=== PATIENT | female | born 1980 | race Caucasian/White ===

== ENCOUNTER 2019-07-14 19:02 | Emergency (ER) | payer BC ==
[~2019-07-14] VITALS: Ht 172.7 cm; Wt 61.2 kg
--- NOTE | 2019-07-14 19:15 | NUR ---
ED Nurse Note: Patient walked into ED c/o new onset weakness that started aroudn 1630 earlier accompanied by a mild headache, rates her pain a 7/10 pain. denies any vision changes, just reports dizziness. patient is alert and oriented x4, no forearm drifted noted. Eyes WANG. patient placed on a youth nutritional monitor, bed at lowest position, iv started on patients right forearm 20 gauge. will wait for further orders
[2019-07-14 19:18] VITALS: BP 145/94
--- NOTE | 2019-07-14 19:29 | Emergency Room Report ---
History of Present Illness General Chief Complaint: Headache Source: Patient Present Illness HPI Disclaimer: Please note that this report is being documented using [employer] technology. This can lead to erroneous entry secondary to incorrect interpretation by the dictating instrument. HPI: 38-year-old female with a history of RA and carpal tunnel syndrome presents for evaluation of paresthesias and headaches. Symptoms have been intermittent and present for several weeks. She notes approximately 1 week of a generalized headache and difficulty concentrating. She feels like her head is "fuzzy" denies any visual changes, neck pain, fever, changes in consciousness , ataxia, weakness. She reports paresthesias around her mouth and over the extremities both upper and lower. They come and go without obvious trigger. She notes photophobia but denies photophobia. Has a history of migraines but states this headache is different. It is generalized and currently dull. Reports some nausea but denies vomiting. He is currently reporting bilateral paresthesias around the lower jaw. No new medications. Denies drug or alcohol use. PMH: RA, carpal tunnel PSH: Surgical pinning of tibia Allergies: Denies Social Hx: Denies tobacco, alcohol or drug use Allergies: Coded Allergies: No Known Allergies (Unverified , 07/14/19) Patient History Last Menstrual Period: 06/2019 Now: No Nursing Documentation-PMH Past Medical History: No History, Except For Review of Systems All Other Systems: negative except mentioned in HPI Physical Exam Vital Signs Date Time Temp Pulse Resp B/P (MAP) Pulse Ox O2 Delivery O2 Flow Rate FiO2 07/14/19 19:10 98.4 63 20 145/94 (111) 100 Room Air General: Awake and alert, no acute distress HEENT: NC/AT. EOMI. PERRLA. Visual tompkins are full. No nystagmus. Facial expressions are symmetrical. No facial droop. Cardiovascular: RRR. S1 and S2 normal. No murmur appreciated Resp: Normal work of breathing. No cough, wheezing or crackles appreciated Abdomen: Abdomen is soft, nondistended. Nontender Skin: Intact. No abrasions, laceration or rash over the exposed skin MSK: Normal tone and bulk. Moving all extremities. No obvious deformity. There is no drift in the upper or lower extremities bilaterally. Neuro: Awake and alert. Mentating appropriately. Facial expression symmetrical. No dysarthria, no ataxia on ergkqh-[id number]-[id number] or hqng-so-pwjg testing. Sensation to light touch is intact over the upper and lower extremities. The patient has intact speech with good repetition, comprehension. Fund of knowledge is full. No aphasia, no neglect. NIH: 0 Medical Decision Making Diagnostic Impression: Primary Impression: Abnormal TSH Additional Impressions: Paresthesias Headache ER Course 38-year female presents for evaluation of multiple complaints including headache , paresthesias, photosensitivity intermittently occurring over the past several weeks to months. Differential is broad and includes but is not limited to generalized headache, migraine, dehydration, viral syndrome, peripheral neuropathy, vitamin deficiency, endocrine issue, infection, electrolyte abnormality, space-occupying lesion, cranial malformation, focal seizure activity, toxicology. We will start broad work-up including CT scan of the head , labs, tox screen. She arrives with stable vital signs and is no acute distress. If work-up is unremarkable may follow-up as an outpatient. She already has an appointment with a neurologist in 2 weeks. Laboratory Tests Test 07/14/19 19:25 White Blood Count 6.0 K/UL (4.8-10.8) Red Blood Count 4.07 M/UL (4.20-5.40) L Hemoglobin 10.6 G/DL (12.0-16.0) L Hematocrit 33.3 % (37.0-47.0) L Mean Corpuscular Volume 82 FL (80-99) Mean Corpuscular Hemoglobin 26.1 PG (27.0-31.0) L Mean Corpuscular Hemoglobin Concent 31.9 G/DL (32.0-36.0) L Red Cell Distribution Width 14.3 % (11.6-14.8) Platelet Count 235 K/UL (150-450) Mean Platelet Volume 8.6 FL (6.5-10.1) Neutrophils (%) (Auto) 46.0 % (45.0-75.0) Lymphocytes (%) (Auto) 34.6 % (20.0-45.0) Monocytes (%) (Auto) 12.9 % (1.0-10.0) H Eosinophils (%) (Auto) 3.5 % (0.0-3.0) H Basophils (%) (Auto) 2.9 % (0.0-2.0) H Urine Color Pale yellow Urine Appearance Clear Urine pH 6.5 (4.5-8.0) Urine Specific [place] 1.005 (1.005-1.035) Urine Protein Negative (NEGATIVE) Urine Glucose (UA) Negative (NEGATIVE) Urine Ketones Negative (NEGATIVE) Urine Blood Negative (NEGATIVE) Urine Nitrite Negative (NEGATIVE) Urine Bilirubin Negative (NEGATIVE) Urine Urobilinogen Normal MG/DL (0.0-1.0) Urine Leukocyte Esterase Negative (NEGATIVE) Urine HCG, Qualitative Negative (NEGATIVE) Sodium Level 140 MMOL/L (136-145) Potassium Level 4.5 MMOL/L (3.5-5.1) Chloride Level 103 MMOL/L (98-107) Carbon Dioxide Level 29 MMOL/L (21-32) Anion Gap 8 mmol/L (5-15) Blood Urea Nitrogen 11 mg/dL (7-18) Creatinine 1.2 MG/DL (0.55-1.30) Estimate Glomerular Filtration Rate 50.5 mL/min (>60) Glucose Level 100 MG/DL (74-106) Calcium Level 8.9 MG/DL (8.5-10.1) Magnesium Level 2.2 MG/DL (1.8-2.4) Total Bilirubin 0.3 MG/DL (0.2-1.0) Aspartate Amino Transferase (AST) 18 U/L (15-37) Alanine Aminotransferase (ALT) 19 U/L (12-78) Alkaline Phosphatase 70 U/L (46-116) Total Protein 7.7 G/DL (6.4-8.2) Albumin 4.0 G/DL (3.4-5.0) Globulin 3.7 g/dL Albumin/Globulin Ratio 1.1 (1.0-2.7) Thyroid Stimulating Hormone (TSH) 5.090 uiU/mL (0.358-3.740) Salicylates Level 1.1 ug/mL (2.8-20) L Urine Opiates Screen Negative (NEGATIVE) Acetaminophen Level < 2 MCG/ML (10-30) L Urine Barbiturates Screen Negative (NEGATIVE) Phencyclidine (PCP) Screen Negative (NEGATIVE) Urine Amphetamines Screen Negative (NEGATIVE) Urine Benzodiazepines Screen Negative (NEGATIVE) Urine Cocaine Screen Negative (NEGATIVE) Urine Marijuana (THC) Screen Negative (NEGATIVE) Serum Alcohol < 3 mg/dL CT/MRI/US Diagnostic Results CT/MRI/US Diagnostic Results : Impression Preliminary Findings Only See Final Report For Complete Findings CT HEAD Without Contrast: No acute intracranial hemorrhage, extra-axial fluid collection, edema, mass effect, or ischemic infarct. No fracture. Trace mucosal thickening in the left maxillary sinus. Radiologist: Bill Holden MD Study ready at 20:11 and initial results transmitted at 20:18 Reevaluation Time: 20:48 Last Vital Signs Date Time Temp Pulse Resp B/P (MAP) Pulse Ox O2 Delivery O2 Flow Rate FiO2 07/14/19 19:10 98.4 63 20 145/94 (111) 100 Room Air Reevaluation Impression Labs have returned largely within normal limits aside from an elevated TSH. CT scan does not show any space-occupying lesion or other abnormalities. The patient is resting comfortably on my reevaluation. It is possible that this is an endocrine issue as the patient states there is a family history of Melvin' s disease. She has been screened many years ago but now has an appoint with a neurologist in 2 weeks and will also follow-up with her PMD to arrange an appointment with endocrinology. I advised her that she requires repeat and possibly more extensive testing including vitamin studies for B12, thiamine, folate to rule out other cause of peripheral neuropathy. Provided copies of her labs and imaging reports. Patient is feeling well and would like to be discharged to follow-up as an outpatient. We discussed reasons to return to the emergency department. She understands and agrees with this treatment plan. Disposition: HOME, SELF-CARE Condition: Stable Jac Perkins MD Jul 14, 2019 19:29
[2019-07-14 19:58] LABS: BASOPHILS % (AUTO) 2.9 % (0.0-2.0); EOSINOPHILS % (AUTO) 3.5 % (0.0-3.0); HEMATOCRIT 33.3 % (37.0-47.0); HEMOGLOBIN 10.6 G/DL (12.0-16.0); LYMPHOCYTES % (AUTO) 34.6 % (20.0-45.0); MEAN CORPUSCULAR VOLUME 82 FL (80-99); MONOCYTES % (AUTO) 12.9 % (1.0-10.0); PLATELET COUNT 235 K/UL (150-450); RED BLOOD COUNT 4.07 M/UL (4.20-5.40); RED CELL DISTRIBUTION WIDTH 14.3 % (11.6-14.8)
[2019-07-14 20:10] LABS: APPEARANCE,URINE CLEAR; BILIRUBIN, URINE NEGATIVE (NEGATIVE); COLOR,URINE PALE YELLOW; GLUCOSE, URINE (UA) NEGATIVE (NEGATIVE); KETONES,URINE NEGATIVE (NEGATIVE); LEUKOCYTE ESTERASE ,URINE NEGATIVE (NEGATIVE); NITRITE,URINE NEGATIVE (NEGATIVE); PH,URINE 6.5 (4.5-8.0); PROTEIN,URINE NEGATIVE (NEGATIVE); UROBILINOGEN,URINE NORMAL MG/DL (0.0-1.0)
--- NOTE | 2019-07-14 20:19 | Diagnostic Imaging Report ---
Indications: Headache Technique: Spiral acquisitions obtained through the brain. Angled axial and coronal 5 x 5 mm slices were reconstructed. Total dose length product 1334 mGycm. CTDI vol(s) 60 mGy. Dose reduction achieved using automated exposure control Comparison: None. Findings: Intact calvarium. There is minimal bilateral maxillary sinus disease. Normal size ventricles and extra axial CSF spaces. Normal oconnor-white differentiation. Visualized orbits are unremarkable. No acute intracranial hemorrhage or edema, mass effect, nor midline shift. Impression: Negative for acute intracranial bleed or mass effect Minimal sinus disease This agrees with the preliminary interpretation provided overnight by [facility]. The CT scanner at [facility] is accredited by the [employer] and the scans are performed using protocols designed to limit radiation exposure to as low as reasonably achievable to attain images of sufficient resolution adequate for diagnostic evaluation.
[2019-07-14 20:26] LABS: ANION GAP 8 mmol/L (5-15); BLOOD UREA NITROGEN 11 mg/dL (7-18); CALCIUM 8.9 MG/DL (8.5-10.1); CARBON DIOXIDE 29 MMOL/L (21-32); CHLORIDE 103 MMOL/L (98-107); CREATININE 1.2 MG/DL (0.55-1.30); POTASSIUM 4.5 MMOL/L (3.5-5.1); SODIUM 140 MMOL/L (136-145)
[2019-07-14 20:37] LABS: ALANINE AMINOTRANSFERASE 19 U/L (12-78); ALBUMIN/GLOBULIN RATIO 1.1 (1.0-2.7); ALKALINE PHOSPHATASE 70 U/L (46-116); ASPARTATE AMINO TRANSFERASE 18 U/L (15-37); BILIRUBIN,TOTAL 0.3 MG/DL (0.2-1.0)
[2019-07-14 21:00] VITALS: BP 128/76
--- NOTE | 2019-07-14 21:00 | NUR ---
ER DISCHARGE NOTE: Patient is cleared to be discharged per ERMD, pt is aox4, on room air, with stable vital signs. pt was given dc and prescription instructions, pt was able to verbalize understanding, pt id band and iv site removed without complications. pt is able to ambulate with steady gait. pt took all belongings.
== END 2019-07-14 21:00 | disposition home or self-care (01) ==
LOC: EMR 20:06
DX: R20.2 Paresthesia of skin (principal); R51 Headache; R79.89 Other specified abnormal findings of blood chemistry
CPT/HCPCS: 36415; 70450; 80053; 80307; 81003; 81025; 83735; 84443; 85025; 99284; G0480

== ENCOUNTER 2019-07-20 20:36 | Emergency (ER) | payer BC ==
[~2019-07-20] VITALS: Ht 170.2 cm; Wt 65.8 kg
[2019-07-20 20:45] VITALS: BP 123/67
[2019-07-20] MEDS: Ketorolac 30mg Inj IV ONE ×2 (21:09→21:15)
[2019-07-20] MEDS ORDERED: Metoclopramide 10mg/2ml Inj IVP ONE (21:15)
[2019-07-20] MEDS ORDERED: DiphenhydrAMINE 50mg/ml Inj IVP ONE (21:15)
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
[2019-07-20] MEDS ORDERED: FIORICET1 EA ORAL (21:34)
[2019-07-20 22:00] VITALS: BP 115/65
== END 2019-07-20 22:00 | disposition home or self-care (01) ==
LOC: EMR 20:55
DX: R51 Headache (principal); R42 Dizziness and giddiness
CPT/HCPCS: 96374; 96375; 99284; J1200; J1885; J2765

== ENCOUNTER 2020-02-20 15:07 | Emergency (ER) | payer SELFPAY ==
[~2020-02-20] VITALS: Ht 170.2 cm; Wt 65.8 kg
[~2020-02-20 15:07] MED LIST: FIORICET1 EA ORAL
[2020-02-20] MEDS ORDERED: Omnipaque-300 100ml vial INJ PRN (15:15)
[2020-02-20 15:32] VITALS: BP 126/82
[2020-02-20 15:44] LABS: BASOPHILS % (AUTO) 3.2 % (0.0-2.0); EOSINOPHILS % (AUTO) 3.5 % (0.0-3.0); HEMATOCRIT 39.5 % (37.0-47.0); HEMOGLOBIN 12.8 G/DL (12.0-16.0); LYMPHOCYTES % (AUTO) 26.1 % (20.0-45.0); MEAN CORPUSCULAR VOLUME 94 FL (80-99); MONOCYTES % (AUTO) 11.1 % (1.0-10.0); NEUTROPHILS % (AUTO) 56.1 % (45.0-75.0); PLATELET COUNT 233 K/UL (150-450); RED BLOOD COUNT 4.19 M/UL (4.20-5.40); RED CELL DISTRIBUTION WIDTH 12.1 % (11.6-14.8); WHITE BLOOD COUNT 8.9 K/UL (4.8-10.8)
[2020-02-20 15:46] LABS: APPEARANCE,URINE CLEAR; BILIRUBIN, URINE NEGATIVE (NEGATIVE); COLOR,URINE PALE YELLOW; GLUCOSE, URINE (UA) NEGATIVE (NEGATIVE); KETONES,URINE NEGATIVE (NEGATIVE); LEUKOCYTE ESTERASE ,URINE NEGATIVE (NEGATIVE); NITRITE,URINE NEGATIVE (NEGATIVE); PH,URINE 5 (4.5-8.0); PROTEIN,URINE NEGATIVE (NEGATIVE); UROBILINOGEN,URINE NORMAL MG/DL (0.0-1.0)
[2020-02-20 15:56] LABS: ANION GAP 12 mmol/L (5-15); BLOOD UREA NITROGEN 10 mg/dL (7-18); CALCIUM 9.5 MG/DL (8.5-10.1); CARBON DIOXIDE 22 MMOL/L (21-32); CHLORIDE 103 MMOL/L (98-107); POTASSIUM 3.8 MMOL/L (3.5-5.1); SODIUM 137 MMOL/L (136-145)
[2020-02-20 16:02] LABS: ALANINE AMINOTRANSFERASE 14 U/L (12-78); ALBUMIN 4.2 G/DL (3.4-5.0); ALBUMIN/GLOBULIN RATIO 0.9 (1.0-2.7); ALKALINE PHOSPHATASE 72 U/L (46-116); ASPARTATE AMINO TRANSFERASE 18 U/L (15-37); BILIRUBIN,TOTAL 0.3 MG/DL (0.2-1.0)
--- NOTE | 2020-02-20 16:34 | Diagnostic Imaging Report ---
EXAM: CT CT Abdomen Pelvis WO Contrast INDICATION: Abdominal pain. COMPARISON: None TECHNIQUE: Axial images were obtained through the abdomen pelvis without intravenous contrast. Sagittal and coronal reformats are generated. All CT scans at this facility are performed using dose modulation techniques as appropriate to a performed exam including the following: automated exposure control with adjustment of the mA and/or kV according to patient size. RADIATION DOSE: CTDIvol: 4.9 mGy DLP: 250 3. mGy-cm Dose information generated by the CT scanner is available in PACS. FINDINGS: The lung bases are clear. The liver and spleen are homogeneous. Gallbladder is without sludge or stone and there is no wall thickening. The pancreas is unremarkable. Adrenals are normal in morphology. The kidneys are normal in size, shape and axis. Small bowel loops are nondistended. Mild increased stool lucencies noted in the colon. The appendix is normal. There is no free fluid or free air. No pathologic adenopathy demonstrated. Urinary bladder appears unremarkable. Uterus is midline. There appears to be a left adnexal cyst. IMPRESSION: NO SIGN OF ACUTE DISEASE IN THE ABDOMEN AND PELVIS. NORMAL APPENDIX. MILDLY INCREASED STOOL LUCENCIES IN THE COLON WHICH MAY BE RELATED TO MILD CONSTIPATION. LEFT ADNEXAL CYST LIKELY PHYSIOLOGIC.
--- NOTE | 2020-02-20 16:40 | Emergency Room Report ---
History of Present Illness General Chief Complaint: Abdominal Pain Source: Patient Present Illness HPI 39-year-old female with no significant past medical history here complaining of sudden onset of right lower quadrant abdominal pain and few bouts of nonbloody emesis last night. Denies any nausea vomiting at this time. Denies any diarrhea. Reports that she often deals with constipation and she has been constipated more so in the past few days. Complains of fever and chills last night however denies any fever and chills at this time. Does not want to be given medication at this time. Reports that she has a history of ruptured ovarian cyst in the same side of pain. Denies any vaginal bleeding, clotting, urinary symptoms. Has not taken medication for symptom relief. Denies tobacco smoke, drug use, alcohol intake. Denies Allergies: Coded Allergies: No Known Allergies (Unverified , 07/14/19) COVID-19 Screening Contact w/high risk pt: No Recent Travel to affected area: No Experienced COVID-19 symptoms?: No COVID-19 Testing performed METAL BALER: No Patient History Past Medical History: see triage record Past Surgical History: none Pertinent Family History: none Last Menstrual Period: 02/01/20 Now: No : 0 Para: 0 Immunizations: UTD Reviewed Nursing Documentation: PMH: Agreed; PSxH: Agreed Nursing Documentation-PMH Past Medical History: No History, Except For Review of Systems All Other Systems: negative except mentioned in HPI Physical Exam Vital Signs Date Time Temp Pulse Resp B/P (MAP) Pulse Ox O2 Delivery O2 Flow Rate FiO2 02/20/20 15:11 98.8 65 18 126/82 (97) 98 Room Air Sp02 EP Interpretation: reviewed, normal General Appearance: no apparent distress, alert, GCS 15, non-toxic Head: normocephalic, atraumatic Eyes: bilateral eye normal inspection, bilateral eye PERRL ENT: hearing grossly normal, normal pharynx, no angioedema, normal voice Neck: full range of motion, supple/symm/no masses Respiratory: chest non-tender, lungs clear, normal breath sounds, no rhonchi, no respiratory distress, no wheezing, speaking full sentences Cardiovascular #1: regular rate, rhythm, no edema Gastrointestinal: non tender, soft, no mass, no bruit, no hernia, no pulsatile mass, guarding - Right lower quadrant Rectal: deferred Genitourinary: no CVA tenderness Musculoskeletal: back normal Neurologic: alert, motor strength/tone normal, oriented x3, sensory intact, responsive, speech normal Psychiatric: judgement/insight normal, memory normal, mood/affect normal, no suicidal/homicidal ideation Skin: no rash Lymphatic: no adenopathy Medical Decision Making PA Attestation All diagnoses and treatment plans were reviewed and discussed with my supervising physician Dr. Perkins Diagnostic Impression: Primary Impression: Elevated lipase Additional Impressions: Constipation UTI (urinary tract infection) ER Course 39-year-old female with no significant past medical history here complaining of sudden onset of right lower quadrant abdominal pain and few bouts of nonbloody emesis last night. Denies any nausea vomiting at this time. Denies any diarrhea. Reports that she often deals with constipation and she has been constipated more so in the past few days. Complains of fever and chills last night however denies any fever and chills at this time. Does not want to be given medication at this time. Reports that she has a history of ruptured ovarian cyst in the same side of pain. Denies any vaginal bleeding, clotting, urinary symptoms. Has not taken medication for symptom relief. Denies tobacco smoke, drug use, alcohol intake. Denies Ddx considered but are not limited to: appendicitis, cholecystis, gastritis, gastroenteritis, UTI, pyelonephritis, SBO, diverticulitis, influenza with GI manifestation, VA, complication with , pancreatitis, constipation, ovarian cyst, ruptured ovarian cyst Vital signs: are WNL, pt. is afebrile H&PE are most consistent with: Elevated lipase, constipation, UTI ORDERS: abdominal CT without contrast patient reports that she is allergic to contrast, abdominal pain set, EKG, abdominal US, Colace, Zofran, Macrobid ED INTERVENTIONS: Patient did not want any medication or IV fluids at the ED. DISCHARGE: At this time pt. is stable for d/c to home. Will provide printed patient care instructions, and any necessary prescriptions. Care plan and follow up instructions have been discussed with the patient prior to discharge. Patient to follow-up take medication as directed, if worsening symptoms return to the emergency room EKG Diagnostic Results Rate: normal Rhythm: NSR ST Segments: no acute changes Other Impression No acute ST changes CT/MRI/US Diagnostic Results CT/MRI/US Diagnostic Results #1: Imaging Test Ordered: CT abdomen pelvis no contrast Impression Noted, no appendicitis CT/MRI/US Diagnostic Results #2: Imaging Test Ordered: pelvic US Impression FINDINGS: Uterus/cervix: The uterus measures 9.3 x 6.4 x 5.4 cm. There is suggestion of a possible bicornuate uterus. The endometrial stripes measure 1.3 and 1.17 m. No myometrial mass. Right ovary: Both ovaries were visualized endovaginally. Flow to both ovaries is noted. Right ovary measures 2.9 x 2.2 x 2.4 cm. Normal blood flow. Left ovary: Left ovary measures 3.7 x 2.8 x 2.8 cm. Free fluid: No free fluid. Bladder: Unremarkable as visualized. Wall is normal thickness for degree of distention. IMPRESSION: 1. Possible bicornuate uterus. 2. Magnetic resonance imaging of the pelvis is suggested to confirm this finding. 3. Flow to both ovaries is noted. Last Vital Signs Date Time Temp Pulse Resp B/P (MAP) Pulse Ox O2 Delivery O2 Flow Rate FiO2 02/20/20 15:32 98.8 65 18 126/82 98 Room Air Disposition: HOME, SELF-CARE Condition: Stable Scripts Nitrofurantoin Monohyd/M-Cryst* (MACROBID 100 MG*) 100 Mg Capsule 100 MG ORAL EVERY 12 HOURS for 7 Days, #14 CAP Prov: Vicki Mitchell 02/20/20 Ondansetron (Zofran) 4 Mg Tablet 4 MG ORAL Q6H PRN for Nausea & Vomiting, #14 TAB Prov: Vicki Mitchell 02/20/20 Docusate Sodium* (COLACE*) 100 Mg Capsule 100 MG ORAL TWICE A DAY, #20 CAP Prov: Vicki Mitchell 02/20/20 Referrals: NOT CHOSEN IPA/MD,REFERRING (PCP) Patient Instructions: Abdominal Pain, Adult, Constipation, Adult, [id number] Additional Instructions: Take medication as directed, gradual hydration, follow-up with your primary doctor regarding elevated lipase, if worsening symptoms return to the emergency room Vicki Mitchell Feb 20, 2020 16:40
[2020-02-20] MEDS ORDERED: ZOFRAN4 M1 ORAL (16:41)
[2020-02-20] MEDS ORDERED: COLACE100 MG ORAL (16:41)
[2020-02-20] MEDS ORDERED: NITROFURANTOIN100 M2 ORAL (16:42)
--- NOTE | 2020-02-20 17:44 | Diagnostic Imaging Report ---
EXAM: US Pelvis Transabdominal, Complete CLINICAL HISTORY: Pelvic pain. TECHNIQUE: Real-time complete transabdominal pelvic ultrasound with image documentation. COMPARISON: 02/20/2020. FINDINGS: Uterus/cervix: The uterus measures 9.3 x 6.4 x 5.4 cm. There is suggestion of a possible bicornuate uterus. The endometrial stripes measure 1.3 and 1.17 m. No myometrial mass. Right ovary: Both ovaries were visualized endovaginally. Flow to both ovaries is noted. Right ovary measures 2.9 x 2.2 x 2.4 cm. Normal blood flow. Left ovary: Left ovary measures 3.7 x 2.8 x 2.8 cm. Free fluid: No free fluid. Bladder: Unremarkable as visualized. Wall is normal thickness for degree of distention. IMPRESSION: 1. Possible bicornuate uterus. 2. Magnetic resonance imaging of the pelvis is suggested to confirm this finding. 3. Flow to both ovaries is noted.
[2020-02-20 17:46] VITALS: BP 130/86
--- NOTE | 2020-02-20 17:47 | Diagnostic Imaging Report ---
EXAM: US Pelvis Transvaginal and US Duplex Arterial/Venous of the Pelvis, Complete CLINICAL HISTORY: Pelvic pain. TECHNIQUE: Real-time transvaginal pelvic ultrasound with image documentation. Transvaginal imaging was used for better evaluation of the endometrium and adnexa. Real-time duplex ultrasound scan of the arterial and venous flow of the pelvis with color Doppler flow and spectral waveform analysis. COMPARISON: 02/20/2020. FINDINGS: Uterus/cervix: Possible bicornuate uterus. Endometrial stripes measure 1.3 and 1.1 cm. The uterus measures 9.2 x 6.4 x 5.4 cm. No myometrial mass. Right ovary: Right ovary was not visualized by transabdominal imaging. Both ovaries were visualized by transvaginal imaging. Flow to both ovaries. No adnexal masses noted. Right ovary measures 3.3 x 2.9 x 2.47 m. Left ovary: Left ovary measures 2.7 x 2.8 x 4 cm. Free fluid: No free fluid. Bladder: Empty bladder which cannot be evaluated with this probe. IMPRESSION: 1. Possible bicornuate uterus. 2. Magnetic resonance imaging of the pelvis is suggested to confirm this finding. 3. Flow to both ovaries is noted.
[2020-02-20 17:53] VITALS: BP 128/81
== END 2020-02-20 17:53 | disposition home or self-care (01) ==
LOC: EMR 15:21
DX: K59.00 Constipation, unspecified (principal); N39.0 Urinary tract infection, site not specified; R74.8 Abnormal levels of other serum enzymes
CPT/HCPCS: 36415; 74176; 76830; 76856; 80053; 81003; 81025; 83690; 85025; 85610; 85730; 87086; 93005; 99284